=== PATIENT | female | born 1995 | race Caucasian/White ===

== ENCOUNTER 2017-03-22 09:49 | Emergency (ER) | payer BC ==
[2017-03-22 10:32] LABS: HEMOGLOBIN 14.6 gm/dl (12.3-15.3); RED BLOOD COUNT 4.88 M/UL (4.00-5.10); WHITE BLOOD COUNT 8.2 K/UL (4.5-11.0)
[2017-03-22 10:59] LABS: BUN/CREATININE RATIO 15 (0-10)
== END 2017-03-22 13:35 | disposition home or self-care (01) ==
LOC: ER1 09:49
PROVIDERS: Family Medicine
DX: R07.9 Chest pain, unspecified (principal)
CPT/HCPCS: 36415; 71010; 80053; 82550; 82553; 83874; 84484; 84703; 85025; 93005; 99285

== ENCOUNTER 2021-08-30 22:00 | Emergency (ER) | payer OTHER ==
[~2021-08-30 22:00] MED LIST: AMOXICILLIN500 MG PO; BENADRYL 25MG C25 MG PO; BENTYL 20MG TAB20 MG PO; FLEXERIL 10 MG10 MG PO; IBUPROFEN600 MG PO; NORCO 5-325 TA1 EACH PO; ZOFRAN ODT 4 MG4 MG SL; ZOFRAN ODT4 MG PO; ZOFRAN4 MG PO
[2021-08-30 23:38] LABS: HEMOGLOBIN 13.8 gm/dl (12.3-15.3); RED BLOOD COUNT 4.54 M/UL (4.00-5.10); WHITE BLOOD COUNT 6.4 K/UL (4.5-11.0)
[2021-08-31 00:11] LABS: BUN/CREATININE RATIO 14 (0-10)
== END 2021-08-31 00:48 | disposition home or self-care (01) ==
LOC: ER1 22:00
PROVIDERS: Physician Assistant
DX: R07.9 Chest pain, unspecified (principal)
CPT/HCPCS: 71045; 80053; 80307; 81001; 82550; 82553; 83690; 83735; 83874; 83880; 84484; 84703; 85025; 87086; 93005; 99285

== ENCOUNTER 2022-01-09 03:10 | Emergency (ER) | payer OTHER ==
[2022-01-09 03:59] LABS: HEMOGLOBIN 14.5 gm/dl (12.3-15.3); RED BLOOD COUNT 4.89 M/UL (4.00-5.10); WHITE BLOOD COUNT 8.3 K/UL (4.5-11.0)
[2022-01-09 04:19] LABS: BUN/CREATININE RATIO 15 (0-10)
== END 2022-01-09 05:45 | disposition home or self-care (01) ==
LOC: ER1 03:10
PROVIDERS: Physician Assistant
DX: O20.9 Hemorrhage in early pregnancy, unspecified (principal); Z88.8 Allergy status to other drugs, medicaments and biological substances
CPT/HCPCS: 80053; 81001; 83690; 84702; 84703; 85025; 86850; 86900; 86901; 87086; 99284

== ENCOUNTER 2022-01-10 20:19 | Emergency (ER) | payer OTHER ==
[2022-01-10 22:22] LABS: RED BLOOD COUNT 4.67 M/UL (4.00-5.10); WHITE BLOOD COUNT 6.7 K/UL (4.5-11.0)
[2022-01-10 22:37] LABS: BUN/CREATININE RATIO 17 (0-10)
== END 2022-01-11 04:05 | disposition home or self-care (01) ==
LOC: ER1 20:19
PROVIDERS: Physician Assistant
DX: R10.30 Lower abdominal pain, unspecified (principal); R55 Syncope and collapse; Z88.8 Allergy status to other drugs, medicaments and biological substances
CPT/HCPCS: 80048; 81001; 85025; 93005; 96374; 99284; J1885; Q9967

== ENCOUNTER 2022-04-03 02:49 | Emergency (ER) | payer OTHER ==
[~2022-04-03 02:49] MED LIST changes: +PHENERGAN 25 MG25 M1 PO
[2022-04-03 03:39] LABS: HEMOGLOBIN 13.7 gm/dl (12.3-15.3); RED BLOOD COUNT 4.56 M/UL (4.00-5.10); WHITE BLOOD COUNT 9.5 K/UL (4.5-11.0)
[2022-04-03 04:03] LABS: BUN/CREATININE RATIO 15 (0-10)
== END 2022-04-03 04:35 | disposition home or self-care (01) ==
LOC: ER1 02:49
PROVIDERS: Emergency Medicine
DX: R10.31 Right lower quadrant pain (principal)
CPT/HCPCS: 80053; 81001; 83690; 84703; 85025; 99284

== ENCOUNTER 2022-04-06 04:12 | Emergency (ER) | payer OTHER ==
[2022-04-06 08:26] LABS: HEMOGLOBIN 13.8 gm/dl (12.3-15.3); RED BLOOD COUNT 4.53 M/UL (4.00-5.10)
[2022-04-06 08:41] LABS: BUN/CREATININE RATIO 9 (0-10)
== END 2022-04-06 11:36 | disposition home or self-care (01) ==
LOC: ER1 04:12
PROVIDERS: Nurse Practitioner
DX: R10.2 Pelvic and perineal pain (principal); R10.9 Unspecified abdominal pain; Z88.8 Allergy status to other drugs, medicaments and biological substances
CPT/HCPCS: 80053; 81001; 82150; 83690; 84703; 85025; 86850; 86900; 86901; 96374; 99284; J2270; Q9967